=== PATIENT | female | born 1975 | race African-American/Black ===

== ENCOUNTER 2023-06-11 14:05 | Outpatient (CLI) | payer MEDICAID | END 2023-06-11 14:06 | disposition home or self-care (01) | LOC: CSHMAMMO 14:05 → EDSTATUS 14:15 | PROVIDERS: ATTEND Nurse Practitioner Women's Health | DX: Z12.31 Encounter for screening mammogram for malignant neoplasm of breast (principal) | CPT/HCPCS: 77067 ==